=== PATIENT | male | born 1995 | race Two or more races ===

== ENCOUNTER 2018-11-04 20:43 | Emergency (ER) | payer OTHER ==
[~2018-11-04] VITALS: Ht 193 cm; Wt 104.3 kg
[2018-11-05] MEDS ORDERED: cefTRIAXone 1GM/50ML D5W 50 ML IV ONE (00:30)
[2018-11-05] MEDS ORDERED: ONDANSETRON HCL 4 MG/2 ML VIAL IM ONE (00:30)
[2018-11-05] MEDS ORDERED: MORPHINE SULF INJ 2 MG/ML SYRINGE 1ML IM ONE (00:30)
[2018-11-05] MEDS ORDERED: TETANUS-DIPTH-ACEL PERTUSSIS 0.5ML SYRG IM ONE (00:30)
[2018-11-05] MEDS ORDERED: cefTRIAXone W LIDOCAINE 1 GM IM IM ONE (00:45)
[2018-11-05] MEDS ORDERED: cefTRIAXone SOD 1,000 MG VL ONE (00:53)
[2018-11-05] MEDS ORDERED: LIDOCAINE 2% (LOCAL ANESTH.) PF 5ml SDV ONE (00:53)
[2018-11-05 02:00] VITALS: BP 127/64
== END 2018-11-05 02:00 | disposition home or self-care (01) ==
LOC: ER 20:49
DX: S02.2XXA Fracture of nasal bones, initial encounter for closed fracture (principal); S02.612A Fracture of condylar process of left mandible, initial encounter for closed fracture; Y08.89XA Assault by other specified means, initial encounter; Y93.89 Activity, other specified; Y99.0 Civilian activity done for income or pay; Y92.89 Other specified places as the place of occurrence of the external cause
CPT/HCPCS: 70486; 90471; 90715; 96372; 99284; J0696; J2270; J2405; J2001

== ENCOUNTER 2021-05-18 09:15 | Inpatient (IN) | payer MEDICAID, OTHER ==
[~2021-05-18] VITALS: Ht 193 cm; Wt 102.4 kg
[2021-05-18] MEDS ORDERED: SODIUM CHLORIDE 0.9% 1,000 ML IV ONE ×2 (09:30)
[2021-05-18] MEDS ORDERED: ONDANSETRON HCL 4 MG/2 ML VIAL IV ONE ×2 (09:30→12:45)
[2021-05-18 10:06] LABS: Basophils # (auto) 0.1 10 ^3/uL (0-0.2); Eosinophils # (auto) 0 10 ^3/uL (0-0.8); Mean Corpuscular Hgb Conc. 34.6 g/dL (32.0-36.0); Monocytes # (auto) 0.8 10 ^3/uL (0-1.3)
[2021-05-18 10:08] LABS: Basophils % (auto) 0.9 % (0.0-2.0); Eosinophils % (auto) 0.5 % (0.0-7.0); Hematocrit 47.4 % (41.0-53.0); Hemoglobin 16.4 g/dL (13.5-17.5); Lymphocytes # (auto) 1.3 10 ^3/uL (0.4-5.4); Lymphocytes % (auto) 12.8 % (10.0-50.0); Mean Corpuscular Hemoglobin 30.1 pg (28.0-32.0); Mean Corpuscular Volume 86.8 fL (80.0-100.0); Monocytes % (auto) 8.2 % (0.0-12.0); Neutrophils # (auto) 7.9 10 ^3/uL (1.6-8.6); Neutrophils % (auto) 77.6 % (37.0-80.0); Nucleated Red Blood Cells % 0.3 %; Red Blood Cells 5.47 10^6/uL (4.5-5.90); White Blood Cell 10.2 10^3/uL (4.4-10.8)
[2021-05-18 10:23] LABS: Albumin 3.4 g/dL (3.4-5.0); Calcium 9.2 mg/dL (8.5-10.1); Potassium 3.7 mmol/L (3.5-5.1)
[2021-05-18 10:27] LABS: BUN/Creatinine Ratio 11.5; Bilirubin, Total 0.4 mg/dL (0.2-1.0); Total Protein 8.6 g/dL (6.4-8.2)
[2021-05-18 12:38] LABS: Urine WBC None Seen /hpf (0 - 3)
[2021-05-18] MEDS ORDERED: MORPHINE SULFATE 4 MG/ML SYR/VIAL IV ONE (12:45)
[2021-05-18 12:55] LABS: Urine Bacteria NONE SEEN /hpf (None Seen); Urine Blood Negative /uL (Negative); Urine Mucus FEW (None Seen); Urine Specific Gravity 1.016 (1.001-1.035)
[2021-05-18] MEDS ORDERED: cefTRIAXone 1GM/50ML D5W 50 ML IV ONE (14:15)
[2021-05-18] MEDS ORDERED: metroNIDAZOLE 500MG/100ML 100 ML IV ONE (14:15)
[2021-05-18] MEDS ORDERED: PANTOPRAZOLE 40 MG/10 ML VIAL INJ IV ONE (14:15)
[2021-05-18] MEDS ORDERED: NITROGLYCERIN 0.4 MG SL TAB SL PRN (14:30)
[2021-05-18] MEDS ORDERED: MORPHINE SULFATE INJECTION 2 MG/ML SYRG IV PRN (14:30)
[2021-05-18] MEDS ORDERED: POM EACHEYE (16:19)
[2021-05-18] MEDS ORDERED: SUCRALFATE 1 GM/10 ML ORAL SUSP PO ONE (19:30)
[2021-05-18 22:00] VITALS: BP 128/56
[2021-05-18] MEDS: PANTOPRAZOLE 40 MG/10 ML VIAL INJ IV SCH (22:26)
[2021-05-19] MEDS ORDERED: MORPHINE SULFATE INJECTION 2 MG/ML SYRG IV PRN (04:00)
[2021-05-19] MEDS ORDERED: DOCUSATE SOD 100 MG CAP PO PRN (04:00)
[2021-05-19] MEDS ORDERED: SODIUM CHLORIDE 0.9% 1,000 ML IV SCH (04:00)
[2021-05-19] MEDS ORDERED: NITROGLYCERIN 0.4 MG SL TAB SL PRN (04:00)
[2021-05-19] MEDS ORDERED: ACETAMINOPHEN 325 MG TAB PO PRN (04:00)
[2021-05-19] MEDS ORDERED: ALUM & MAG HYDROX-SIMETH LIQ(MAALOX) 30 ML PO PRN (04:00)
[2021-05-19] MEDS ORDERED: TEMAZEPAM 15 MG CAP PO PRN (04:00)
[2021-05-19] MEDS ORDERED: HYDROcodone-ACET 5/325MG TAB PO PRN (04:00)
[2021-05-19] MEDS ORDERED: ONDANSETRON HCL 4 MG/2 ML VIAL IV PRN (04:00)
[2021-05-19 05:00] VITALS: BP 122/70
[2021-05-19 05:47] LABS: Basophils # (auto) 0.1 10 ^3/uL (0-0.2); Eosinophils # (auto) 0.1 10 ^3/uL (0-0.8); Eosinophils % (auto) 1.5 % (0.0-7.0); Hematocrit 44.8 % (41.0-53.0); Hemoglobin 15.5 g/dL (13.5-17.5); Lymphocytes # (auto) 1.4 10 ^3/uL (0.4-5.4); Lymphocytes % (auto) 20.8 % (10.0-50.0); Mean Corpuscular Hemoglobin 29.9 pg (28.0-32.0); Mean Corpuscular Hgb Conc. 34.5 g/dL (32.0-36.0); Mean Corpuscular Volume 86.5 fL (80.0-100.0); Monocytes # (auto) 0.6 10 ^3/uL (0-1.3); Monocytes % (auto) 8.7 % (0.0-12.0); Neutrophils # (auto) 4.5 10 ^3/uL (1.6-8.6); Nucleated Red Blood Cells % 0.1 %; Red Blood Cells 5.17 10^6/uL (4.5-5.90); White Blood Cell 6.6 10^3/uL (4.4-10.8)
[2021-05-19 05:54] LABS: INR 1.1 (0.9-1.15)
[2021-05-19 06:19] LABS: Blood Urea Nitrogen 9 mg/dL (7-18); Chloride 104 mmol/L (98-107); Potassium 3.7 mmol/L (3.5-5.1); Sodium 136 mmol/L (136-145)
[2021-05-19 06:26] LABS: Alanine Aminotransferase 15 U/L (16-61); Albumin 2.6 g/dL (3.4-5.0); Anion Gap 7 (5-15); BUN/Creatinine Ratio 11.7; Calcium 8.5 mg/dL (8.5-10.1); Carbon Dioxide 25 mmol/L (21-32); GFR African American 156 mL/min; GFR Non-African American 129 mL/min; Glucose 99 mg/dL (74-106)
[2021-05-19 06:31] LABS: Alkaline Phosphatase 89 U/L (45-117); Aspartate Aminotransferase 11 U/L (15-37); Bilirubin, Total 0.4 mg/dL (0.2-1.0)
[2021-05-19] MEDS: SUCRALFATE 1 GM/10 ML ORAL SUSP PO SCH ×3 (07:00→18:45)
[2021-05-19 07:40] LABS: Cholesterol 110 mg/dL (< 200); HDL Cholesterol 27 mg/dL (40-59); LDL Cholesterol 71 mg/dL (< 100); Triglycerides 97 mg/dL (< 150)
[2021-05-19 09:00] VITALS: BP 110/67
[2021-05-19] MEDS ORDERED: cefTRIAXone 1GM/50ML D5W 50 ML IV SCH (09:00)
[2021-05-19] MEDS ORDERED: SODIUM CHLORIDE LOCK 10 ML ONE (09:19)
[2021-05-19] MEDS ORDERED: diphenhdrAMINE HCL 50 MG/1 ML VL ONE (09:19)
[2021-05-19] MEDS ORDERED: LIDOCAINE VISCOUS 2% 15ML UD ONE (09:20)
[2021-05-19] MEDS: PANTOPRAZOLE 40 MG/10 ML VIAL INJ IV SCH (10:01)
[2021-05-19] MEDS ORDERED: SUCR1TAB22 OR (10:04)
[2021-05-19] MEDS ORDERED: PANT40TA2 PO (10:04)
[2021-05-19 11:20] LABS: Urine WBC None Seen /hpf (0 - 3)
[2021-05-19 11:40] LABS: Urine Bacteria NONE SEEN /hpf (None Seen); Urine Blood TRACE /uL (Negative); Urine Mucus FEW (None Seen); Urine Specific Gravity 1.016 (1.001-1.035)
[2021-05-19 12:32] LABS: Amphetamine Screen, Urine POSITIVE (NEGATIVE); Barbiturate Scree,Urine NEGATIVE (NEGATIVE); Benzodiazephine Screen, Urine NEGATIVE (NEGATIVE); Cannabinoid Screen, Urine NEGATIVE (NEGATIVE); Cocaine Screen, Urine NEGATIVE (NEGATIVE)
[2021-05-19 12:43] LABS: Opiate Scree,Urine NEGATIVE (NEGATIVE); Phencyclidine Screen, Urine NEGATIVE (NEGATIVE)
[2021-05-19 13:00] VITALS: BP 117/57
[2021-05-19] MEDS: fentaNYL CITRATE 100 MCG/2 ML VL ONE ×2 (16:45→16:48)
[2021-05-19] MEDS: MIDAZOLAM HCL 5 MG/ML-1ML VIAL ONE ×3 (16:45→16:54)
[2021-05-19] MEDS ORDERED: PANTOPRAZOLE 80 MG in SODIUM CHL 0.9% 100 ML IV SCH (18:07)
[2021-05-19 18:15] VITALS: BP 148/58
[2021-05-19 21:45] VITALS: BP 110/62
[2021-05-19] MEDS ORDERED: PANTOPRAZOLE 40 MG/10 ML VIAL INJ IV SCH (22:00)
== END 2021-05-19 22:40 | disposition home or self-care (01) | DRG 241 ==
LOC: ER 09:15 → TELE 14:20 → TELE-WESTW 17:36
PROVIDERS: ADMIT Hospitalist; ATTEND Internal Medicine
PROC: 0DB68ZX Excision of Stomach, Via Natural or Artificial Opening Endoscopic, Diagnostic (ICD-10-PCS; principal; 2021-05-19 16:41)
DX: K29.01 Acute gastritis with bleeding (principal); F15.10 Other stimulant abuse, uncomplicated; K21.9 Gastro-esophageal reflux disease without esophagitis; F17.210 Nicotine dependence, cigarettes, uncomplicated; Z20.822 Contact with and (suspected) exposure to COVID-19; K29.81 Duodenitis with bleeding; Z87.11 Personal history of peptic ulcer disease; Z91.19 Patient's noncompliance with other medical treatment and regimen
CPT/HCPCS: 36415; 43239; 71045; 74176; 80053; 80061; 80307; 81001; 83036; 84484; 85025; 85610; 87040; 87086; 87426; 96361; 96365; 96366; 96367; 96368; 96375; 96376; C9113; G0378; J0696; J2250; J2405; J3490